=== PATIENT | male | born 1945 | race Hispanic/Latino ===

== ENCOUNTER → 2024-07-15 | Day surgery (SDC) | payer MEDICARE ==
[2024-07-14 10:32] LABS: BASOPHILS % 0.6 % (0.0-1.0); EOSINOPHILS # (AUTO) 0.1 (0.0-0.4); EOSINOPHILS % 2.5 % (0.0-6.0); HEMATOCRIT 40.7 % (38.2-49.6); HEMOGLOBIN 12.5 g/dL (14.0-18.0); LYMPHOCYTES # (AUTO) 1.2 (1.0-3.2); LYMPHOCYTES % 22.2 % (18.0-39.1); MEAN CORPUSCULAR HEMOGLOBIN 29.3 pg (28-32); MEAN CORPUSCULAR HGB CONC 30.7 g/dL (31-35); MEAN CORPUSCULAR VOLUME 95.3 fL (81-99); MONOCYTES # (AUTO) 0.5 (0.2-0.8); MONOCYTES % 10.2 % (4.4-11.3); NEUTROPHILS # (AUTO) 3.4 (2.1-6.9); NEUTROPHILS % 64.1 % (38.7-80.0); PLATELET COUNT 213 x10e3/uL (140-360); RED BLOOD COUNT 4.27 x10e6/uL (4.3-5.7); WHITE BLOOD COUNT 5.28 x10e3/uL (4.8-10.8)
[2024-07-14 11:02] LABS: ANION GAP 11.7 mmol/L (8-16); CALCIUM 9.3 mg/dL (8.4-10.2); CREATININE, SERUM 0.89 mg/dL (0.72-1.25); POTASSIUM 4.7 mmol/L (3.5-5.1)
[~2024-07-15] MED LIST: AUGMENTIN 500-1 EACH PO; AVODART0.5 MG PO; DIATRIZOATE MEGLUMINE 300 MG/1 ML BTL UR ONE; GLIPIZIDE5 MG PO; IOPAMIDOL 610MG/1ML 300 MG/ML VIAL IV ONE; LOSARTAN POTASS25 MG PO; METFORMIN HCL500 MG PO; METOPROLOL TART50 MG PO; PIOGLITAZONE HC45 MG PO; SIMVASTATIN40 MG PO
[2024-07-15] MEDS: LACTATED RINGER'S 1,000 ML ONE (08:07)
[2024-07-15] MEDS: CEFTRIAXONE 1 GM VIAL ONE (08:07)
[2024-07-15 09:04] VITALS: TEMP 97.7
[2024-07-15 10:35] VITALS: BP 154/76; PULSE 65; RESP 19; O2SAT 96
== END | disposition home or self-care (01) ==
LOC: OR 06:26
PROVIDERS: ATTEND Urology
DX: N35.812 Other bulbous urethral stricture, male (principal); N35.819 Other urethral stricture, male, unspecified site; N40.1 Benign prostatic hyperplasia with lower urinary tract symptoms; R39.14 Feeling of incomplete bladder emptying; N39.0 Urinary tract infection, site not specified; I10 Essential (primary) hypertension; E78.5 Hyperlipidemia, unspecified; E11.9 Type 2 diabetes mellitus without complications; E66.01 Morbid (severe) obesity due to excess calories; Z01.810 Encounter for preprocedural cardiovascular examination; Z01.812 Encounter for preprocedural laboratory examination; Z01.818 Encounter for other preprocedural examination; Z79.84 Long term (current) use of oral hypoglycemic drugs; Z79.4 Long term (current) use of insulin; Z79.899 Other long term (current) drug therapy; Z68.31 Body mass index [BMI] 31.0-31.9, adult
CPT/HCPCS: 36415; 52281; 71046; 74420; 80048; 85025; 93005; J0696; J7121; Q9967